=== PATIENT | male | born 1965 | race Caucasian/White ===

== ENCOUNTER 2025-04-14 08:15 | Emergency (ER) | payer OTHER | END 2025-04-14 10:35 | disposition home or self-care (01) | LOC: JP.ED 08:15 | DX: S82.845A Nondisplaced bimalleolar fracture of left lower leg, initial encounter for closed fracture (principal); I10 Essential (primary) hypertension; Z79.899 Other long term (current) drug therapy; W18.40XA Slipping, tripping and stumbling without falling, unspecified, initial encounter; Y92.481 Parking lot as the place of occurrence of the external cause | CPT/HCPCS: 73610-26-LT; 73610-LT; 99283 ==